=== PATIENT | female | born 1980 | race Caucasian/White ===

== ENCOUNTER 2017-07-31 15:57 | Outpatient (CLI) | payer OTHER ==
--- NOTE | 2017-07-31 18:14 | Diagnostic Imaging Report ---
[facility] [address] [id number] Report Submission Date: Jul 31, 2017 5:01:20 PM CDT Patient Study Name: GARFIELD ALICIA Date: Jul 31, 2017 4:32:59 PM CDT Modality Type: CR Gender: F Description: LOWER EXTREMITY : 78 Institution: [facility] Physician: MARKOS BUTCHER - OP Examination: Plain film calcaneus History: Discomfort Findings: 2 views of the calcaneus demonstrates normal cortical margins. No fracture or dislocation. Inferior spurs. No soft tissue swelling. No joint effusion. Impression: Calcaneal spur. No acute osseous process. If suspect plantar fasciitis or Achilles tendon inflammation, consider obtaining MRI. Electronically signed on Jul 31, 2017 5:01:20 PM CDT by: Pete SAINI
--- NOTE | 2017-07-31 18:15 | Diagnostic Imaging Report ---
[facility] [address] [facility].[address] [address] Report Submission Date: Jul 31, 2017 5:09:55 PM CDT Patient Study Name: GARFIELD ALICIA Date: Jul 31, 2017 4:36:51 PM CDT Modality Type: CR Gender: F Description: SPINE : 78 Institution: [facility] Physician: MARKOS BUTCHER - OP Examination: Plain film lumbar spine History: Back discomfort Findings: 3 views of the lumbar spine demonstrate normal height. No anterior compression. Few scattered osteophytes. No soft tissue abnormalities. Impression: Minimal degenerative spurring. No compression deformity. If patient is experiencing neurologic symptoms, consider obtaining MRI. Electronically signed on Jul 31, 2017 5:09:55 PM CDT by: Pete SAINI
--- NOTE | 2017-07-31 18:16 | Diagnostic Imaging Report ---
[facility] [address] [address] Report Submission Date: Jul 31, 2017 5:00:24 PM CDT Patient Study Name: GARFIELD ALICIA Date: Jul 31, 2017 4:29:30 PM CDT Modality Type: CR Gender: F Description: UPPER EXTREMITY : 78 Institution: [facility] Physician: MARKOS BUTCHER - OP Examination: Plain film finger History: Finger discomfort Comparison exams: None available Findings: 3 views the 5th digit demonstrate normal cortical margins. No fracture. No dislocation. No soft tissue abnormality. Impression: No acute osseous abnormality Electronically signed on Jul 31, 2017 5:00:24 PM CDT by: Pete SAINI
== END 2017-07-31 16:00 ==
LOC: RAD 15:57
PROVIDERS: ATTEND Family Medicine
DX: M54.42 Lumbago with sciatica, left side (principal); G89.29 Other chronic pain; M79.671 Pain in right foot; M79.645 Pain in left finger(s)
CPT/HCPCS: 72100; 73140; 73650

== ENCOUNTER 2019-03-13 22:01 | Emergency (ER) | payer BC ==
[2019-03-13] MEDS ORDERED: DIPH,PERTUSS(ACELL),TET VAC/PF 0.5 ML DISP.SYRIN IM ONE (22:20)
== END 2019-03-13 22:58 ==
LOC: ED 22:01
DX: S61.211A Laceration without foreign body of left index finger without damage to nail, initial encounter (principal); W19.XXXA Unspecified fall, initial encounter; Y99.8 Other external cause status
CPT/HCPCS: 90715